=== PATIENT | female | born 1975 | race Hispanic/Latino ===

== ENCOUNTER 2021-08-05 15:49 | Emergency (ER) | payer OTHER ==
[~2021-08-05] VITALS: Ht 162.6 cm; Wt 83.0 kg
[2021-08-05 15:49] VITALS: BP 129/60
[2021-08-05] MEDS ORDERED: CEPH500B PO (17:46)
== END 2021-08-05 18:05 | disposition home or self-care (01) ==
LOC: EDH 15:49
DX: L02.31 Cutaneous abscess of buttock (principal)
CPT/HCPCS: 10060; 87070; 87076; 87077; 87186